=== PATIENT | female | born 1965 | race Caucasian/White ===

== ENCOUNTER 2020-10-09 21:20 | Inpatient (IN) | payer MEDICARE ==
[~2020-10-09] VITALS: Ht 162.6 cm; Wt 83.0 kg
[2020-10-09] MEDS ORDERED: CEFEPIME 1 GM in SODIUM CHLORIDE 0.9% 50ML 50 ML IV ONE (21:45)
[2020-10-09] MEDS ORDERED: VANCOMYCIN 1GM/NS 250 ML 250 ML IV ONE (21:45)
[2020-10-09 22:00] LABS: BASOPHILS # (AUTO) 0.1 (0.0-0.1); BASOPHILS % 0.6 % (0.0-1.0); EOSINOPHILS # (AUTO) 0.2 (0.0-0.4); HEMATOCRIT 35.7 % (34.2-44.1); HEMOGLOBIN 11.7 g/dL (12.0-16.0); LYMPHOCYTES % 22.7 % (18.0-39.1); MEAN CORPUSCULAR HGB CONC 32.8 g/dL (31-35); MEAN CORPUSCULAR VOLUME 94.7 fL (81-99); MONOCYTES # (AUTO) 0.7 (0.2-0.8); MONOCYTES % 7.6 % (4.4-11.3); NEUTROPHILS # (AUTO) 5.9 (2.1-6.9); NEUTROPHILS % 66.3 % (38.7-80.0); PLATELET COUNT 405 x10e3/uL (140-360); RED BLOOD COUNT 3.77 x10e6/uL (3.6-5.1)
[2020-10-09 22:17] LABS: ALBUMIN/GLOBULIN RATIO 0.8 (0.8-2.0); ANION GAP 13.2 mmol/L (8-16); CALCIUM 9.5 mg/dL (8.4-10.2); CREATININE, SERUM 0.8 mg/dL (0.57-1.11); POTASSIUM 4.2 mmol/L (3.5-5.1)
[2020-10-09] MEDS ORDERED: Vancomycin IV 1 GM VIAL ONE (22:42)
[2020-10-09] MEDS ORDERED: SODIUM CHLORIDE 0.9% 250ML 250 ML ONE (22:42)
[2020-10-09] MEDS ORDERED: SODIUM CHLORIDE 0.9% 50ML 50 ML ONE (22:43)
[2020-10-09] MEDS ORDERED: CEFEPIME HCL 1 GM VIAL ONE (22:43)
[2020-10-09] MEDS: MORPHINE SULFATE INJ 4 MG/ML INJ 1ML IV PRN (23:48)
[2020-10-09] MEDS: ONDANSETRON HCL INJ 2MG/ML 2ML 2 MG/ML VIAL IV PRN (23:48)
[2020-10-10] VITALS (9 sets, daily range): BP systolic 112–136; BP diastolic 51–75
[2020-10-10] MEDS: SODIUM CHLORIDE 0.9% 1000ML 1,000 ML IV SCH ×3 (03:14→14:45)
[2020-10-10] MEDS ORDERED: ULTRAM50 MG PO (03:51)
[2020-10-10] MEDS ORDERED: IBUPROFEN200 MG PO (03:51)
[2020-10-10] MEDS ORDERED: LEVOCETIRIZINE D5 MG (03:51)
[2020-10-10] MEDS ORDERED: FLONASE ALLERG9.9 ML INH (03:51)
[2020-10-10] MEDS ORDERED: VENLAFAXINE H37.5 M2 PO (03:51)
[2020-10-10] MEDS ORDERED: DOXYCYCLINE MO100 M1 (03:51)
[2020-10-10] MEDS ORDERED: MONTELUKAST SOD10 MG PO (03:51)
[2020-10-10] MEDS: CEFEPIME 1 GM in SODIUM CHLORIDE 0.9% 50ML 50 ML IV SCH ×2 (05:28→14:33)
[2020-10-10] MEDS: ONDANSETRON HCL INJ 2MG/ML 2ML 2 MG/ML VIAL IV PRN (06:02)
[2020-10-10] MEDS: MORPHINE SULFATE INJ 4 MG/ML INJ 1ML IV PRN ×4 (06:02→23:01)
[2020-10-10 07:30] LABS: BASOPHILS # (AUTO) 0.1 (0.0-0.1); BASOPHILS % 0.6 % (0.0-1.0); EOSINOPHILS # (AUTO) 0.2 (0.0-0.4); EOSINOPHILS % 2.6 % (0.0-6.0); HEMATOCRIT 31.9 % (34.2-44.1); HEMOGLOBIN 10.3 g/dL (12.0-16.0); MEAN CORPUSCULAR HEMOGLOBIN 31.1 pg (28-32); MEAN CORPUSCULAR HGB CONC 32.3 g/dL (31-35); MEAN CORPUSCULAR VOLUME 96.4 fL (81-99); MONOCYTES # (AUTO) 0.7 (0.2-0.8); MONOCYTES % 8.8 % (4.4-11.3); NEUTROPHILS # (AUTO) 5.2 (2.1-6.9); NEUTROPHILS % 63.3 % (38.7-80.0); PLATELET COUNT 333 x10e3/uL (140-360); RED BLOOD COUNT 3.31 x10e6/uL (3.6-5.1); RED CELL DISTRIBUTION WIDTH 12.1 % (11.7-14.4)
[2020-10-10 08:04] LABS: ALBUMIN 2.6 g/dL (3.5-5.0); ALBUMIN/GLOBULIN RATIO 0.9 (0.8-2.0); ANION GAP 14.6 mmol/L (8-16); CREATININE, SERUM 0.69 mg/dL (0.57-1.11); POTASSIUM 4.6 mmol/L (3.5-5.1)
[2020-10-10] MEDS: ACETAMINOPHEN 325 MG TAB PO PRN (22:19)
[2020-10-10] MEDS: Vancomycin IV 1 GM in SODIUM CHLORIDE 0.9% 250ML 250 ML IV SCH (23:00)
[2020-10-11] VITALS (8 sets, daily range): BP systolic 12–142; BP diastolic 62–76
[2020-10-11] MEDS: Vancomycin IV 1 GM in SODIUM CHLORIDE 0.9% 250ML 250 ML IV SCH (00:35)
[2020-10-11] MEDS ORDERED: CEFEPIME 1 GM in SODIUM CHLORIDE 0.9% 50ML 50 ML IV SCH (02:00)
[2020-10-11] MEDS: SODIUM CHLORIDE 0.9% 1000ML 1,000 ML IV SCH ×3 (02:03→19:20)
[2020-10-11] MEDS: ACETAMINOPHEN 325 MG TAB PO PRN (04:33)
[2020-10-11 05:06] LABS: BASOPHILS # (AUTO) 0.1 (0.0-0.1); BASOPHILS % 0.7 % (0.0-1.0); EOSINOPHILS # (AUTO) 0.3 (0.0-0.4); EOSINOPHILS % 3.6 % (0.0-6.0); HEMATOCRIT 34.3 % (34.2-44.1); HEMOGLOBIN 11.1 g/dL (12.0-16.0); LYMPHOCYTES # (AUTO) 1.8 (1.0-3.2); LYMPHOCYTES % 23.5 % (18.0-39.1); MEAN CORPUSCULAR HEMOGLOBIN 30.9 pg (28-32); MEAN CORPUSCULAR HGB CONC 32.4 g/dL (31-35); MEAN CORPUSCULAR VOLUME 95.5 fL (81-99); MONOCYTES # (AUTO) 0.7 (0.2-0.8); MONOCYTES % 9.2 % (4.4-11.3); NEUTROPHILS # (AUTO) 4.7 (2.1-6.9); NEUTROPHILS % 62.6 % (38.7-80.0); PLATELET COUNT 327 x10e3/uL (140-360); RED BLOOD COUNT 3.59 x10e6/uL (3.6-5.1)
[2020-10-11 05:43] LABS: ANION GAP 12.1 mmol/L (8-16); CALCIUM 8.6 mg/dL (8.4-10.2); CREATININE, SERUM 0.68 mg/dL (0.57-1.11); POTASSIUM 4.1 mmol/L (3.5-5.1)
[2020-10-11] MEDS: MORPHINE SULFATE INJ 4 MG/ML INJ 1ML IM PRN ×3 (07:41→17:07)
[2020-10-11] MEDS: VENLAFAXINE HCL 37.5MG XR CAP PO SCH (09:00)
[2020-10-11] MEDS ORDERED: VENLAFAXINE HCL 37.5 MG PO SCH (09:00)
[2020-10-11 16:24] LABS: INR 0.97; PROTHROMBIN TIME 13.5 seconds (11.9-14.5)
[2020-10-11 16:25] LABS: PARTIAL THROMBOPLASTIN TIME 31.2 seconds (23.8-35.5)
[2020-10-11] MEDS: DOXYCYCLINE HYCLATE TABLET 100 MG TAB PO SCH (17:00)
[2020-10-11] MEDS ORDERED: ENOXAPARIN SOD INJ 40 MG/0.4 ML SYR SC SCH (17:00)
[2020-10-12] VITALS: BP 144/66
[2020-10-12 04:00] VITALS: BP 133/59
[2020-10-12 06:05] LABS: BASOPHILS # (AUTO) 0.1 (0.0-0.1); BASOPHILS % 0.6 % (0.0-1.0); EOSINOPHILS # (AUTO) 0.2 (0.0-0.4); EOSINOPHILS % 2.2 % (0.0-6.0); HEMATOCRIT 34.4 % (34.2-44.1); LYMPHOCYTES # (AUTO) 1.9 (1.0-3.2); LYMPHOCYTES % 24.2 % (18.0-39.1); MEAN CORPUSCULAR HEMOGLOBIN 30.7 pg (28-32); MEAN CORPUSCULAR VOLUME 96.1 fL (81-99); MONOCYTES # (AUTO) 0.6 (0.2-0.8); MONOCYTES % 7.4 % (4.4-11.3); NEUTROPHILS # (AUTO) 5.1 (2.1-6.9); PLATELET COUNT 318 x10e3/uL (140-360); RED BLOOD COUNT 3.58 x10e6/uL (3.6-5.1); RED CELL DISTRIBUTION WIDTH 11.9 % (11.7-14.4)
[2020-10-12 06:26] LABS: ANION GAP 15.2 mmol/L (8-16); CALCIUM 8.5 mg/dL (8.4-10.2); CREATININE, SERUM 0.63 mg/dL (0.57-1.11); POTASSIUM 4.2 mmol/L (3.5-5.1)
[2020-10-12] MEDS ORDERED: IBUPROFEN200 MG PO (06:31)
[2020-10-12] MEDS ORDERED: CIPRO500 MG PO (06:31)
[2020-10-12] MEDS ORDERED: VIBRAMYCIN100 MG PO (06:31)
[2020-10-12 08:41] VITALS: BP 133/70
[2020-10-12 09:01] VITALS: BP 133/70
[2020-10-12] MEDS: VENLAFAXINE HCL 37.5MG XR CAP PO SCH (09:32)
[2020-10-12] MEDS: DOXYCYCLINE HYCLATE TABLET 100 MG TAB PO SCH (09:32)
== END 2020-10-12 10:42 | disposition home or self-care (01) | DRG 300 ==
LOC: ER 21:30 → ERHOLD 22:50 → MED/SURG3 10-10 02:01
PROVIDERS: ADMIT Internal Medicine; ATTEND Internal Medicine
DX: I80.8 Phlebitis and thrombophlebitis of other sites (principal); L03.114 Cellulitis of left upper limb; L03.113 Cellulitis of right upper limb; F32.9 Major depressive disorder, single episode, unspecified; E66.8 Other obesity; Z68.31 Body mass index [BMI] 31.0-31.9, adult; Z20.822 Contact with and (suspected) exposure to COVID-19
CPT/HCPCS: 36415; 80048; 80053; 83605; 85025; 85610; 85730; 87040; 93970; 99251; 99284; J0692; J1650; J2270; J2405; J3370; J7030; J7050; U0002

== ENCOUNTER 2021-10-26 19:31 | Observation (INO) | payer MEDICARE ==
[~2021-10-26] VITALS: Ht 162.6 cm; Wt 83.0 kg
[~2021-10-26 19:31] MED LIST: CIPRO500 MG PO; DEXAMETHASONE SOD PHOS INJ 4 MG/ML SDV ONE; DOXYCYCLINE MO100 M1; FLONASE ALLERG9.9 ML INH; GLYCOPYRROLATE INJ 0.2 MG/ML VIAL ONE; IBUPROFEN200 MG PO; KETOROLAC TROMETHAMINE 30 MG/ML VIAL ONE; LEVOCETIRIZINE D5 MG; MONTELUKAST SOD10 MG PO; ONDANSETRON HCL INJ 2MG/ML 2ML 2 MG/ML VIAL ONE; POVIDONE IODINE 0.05% 0.05 % ML PO ONE; PROPOFOL IV EMULSION 10 MG/ML 20 ML VIAL ONE; SEVOFLURANE INHAL SOLN 250 ML PEN BTL ONE; ULTRAM50 MG PO; VENLAFAXINE H37.5 M2 PO; VIBRAMYCIN100 MG PO
[2021-10-26] MEDS ORDERED: ONDANSETRON HCL INJ 2MG/ML 2ML 2 MG/ML VIAL IV STA (19:51)
[2021-10-26] MEDS ORDERED: KETOROLAC TROMETHAMINE 30 MG/ML VIAL IV STA (19:51)
[2021-10-26] MEDS ORDERED: DICYCLOMINE HCL 20 MG/2 ML VIAL IM ONE (20:00)
[2021-10-26 20:13] LABS: BASOPHILS # (AUTO) 0.1 (0.0-0.1); BASOPHILS % 0.8 % (0.0-1.0); EOSINOPHILS # (AUTO) 0.2 (0.0-0.4); HEMATOCRIT 41.7 % (34.2-44.1); HEMOGLOBIN 14.4 g/dL (12.0-16.0); LYMPHOCYTES # (AUTO) 2.2 (1.0-3.2); LYMPHOCYTES % 26.2 % (18.0-39.1); MEAN CORPUSCULAR HEMOGLOBIN 33.3 pg (28-32); MEAN CORPUSCULAR HGB CONC 34.5 g/dL (31-35); MEAN CORPUSCULAR VOLUME 96.5 fL (81-99); MONOCYTES # (AUTO) 0.6 (0.2-0.8); MONOCYTES % 7.3 % (4.4-11.3); NEUTROPHILS # (AUTO) 5.3 (2.1-6.9); NEUTROPHILS % 63.2 % (38.7-80.0); PLATELET COUNT 256 x10e3/uL (140-360); RED BLOOD COUNT 4.32 x10e6/uL (3.6-5.1); RED CELL DISTRIBUTION WIDTH 12.4 % (11.7-14.4)
[2021-10-26 20:32] LABS: ALANINE AMINOTRANSFERASE 87 IU/L (0-55); ALBUMIN 3.7 g/dL (3.5-5.0); ALBUMIN/GLOBULIN RATIO 0.9 (0.8-2.0); ALKALINE PHOSPHATASE 76 IU/L (40-150); ANION GAP 15.9 mmol/L (8-16); BLOOD UREA NITROGEN 18 mg/dL (7-26); BUN/CREATININE RATIO 20 (6-25); CALCIUM 9.3 mg/dL (8.4-10.2); CARBON DIOXIDE 24 mmol/L (22-29); CHLORIDE 107 mmol/L (98-107); CREATINE KINASE 91 IU/L (29-168); CREATININE, SERUM 0.88 mg/dL (0.57-1.11); GLUCOSE 105 mg/dL (74-118); POTASSIUM 4.9 mmol/L (3.5-5.1); SODIUM 142 mmol/L (136-145)
[2021-10-26] MEDS ORDERED: ONDANSETRON HCL 4 MG ORAL DISINTEGRATING TAB PO ONE (21:00)
[2021-10-26] MEDS ORDERED: KETOROLAC TROMETHAMINE 60 MG/2 ML VIAL IM ONE (21:00)
[2021-10-26] MEDS ORDERED: KETOROLAC TROMETHAMINE 60 MG/2 ML VIAL ONE (21:06)
[2021-10-27] VITALS (9 sets, daily range): BP systolic 123–158; BP diastolic 56–92
[2021-10-27] MEDS ORDERED: OCEAN104 ML IH (01:58)
[2021-10-27] MEDS ORDERED: LEVOCETIRIZINE D5 MG PO (01:58)
[2021-10-27] MEDS ORDERED: OLOPATADINE HC2.5 ML OU (01:58)
[2021-10-27] MEDS: SODIUM CHLORIDE 0.9% 1000ML 1,000 ML IV SCH ×4 (06:16→22:45)
[2021-10-27] MEDS: Morphine 4mg INJECTION 4 MG/ML INJ IV PRN ×5 (06:17→22:38)
[2021-10-27 07:00] LABS: BASOPHILS % 0.6 % (0.0-1.0); EOSINOPHILS # (AUTO) 0.2 (0.0-0.4); EOSINOPHILS % 3.5 % (0.0-6.0); HEMOGLOBIN 12.7 g/dL (12.0-16.0); LYMPHOCYTES # (AUTO) 2.1 (1.0-3.2); LYMPHOCYTES % 31.7 % (18.0-39.1); MEAN CORPUSCULAR HEMOGLOBIN 32.8 pg (28-32); MEAN CORPUSCULAR HGB CONC 33.4 g/dL (31-35); MEAN CORPUSCULAR VOLUME 98.2 fL (81-99); MONOCYTES # (AUTO) 0.6 (0.2-0.8); MONOCYTES % 9.8 % (4.4-11.3); NEUTROPHILS # (AUTO) 3.5 (2.1-6.9); NEUTROPHILS % 54.1 % (38.7-80.0); PLATELET COUNT 178 x10e3/uL (140-360); RED BLOOD COUNT 3.87 x10e6/uL (3.6-5.1); RED CELL DISTRIBUTION WIDTH 12.5 % (11.7-14.4)
[2021-10-27 07:29] LABS: ALBUMIN 3.1 g/dL (3.5-5.0); CALCIUM 7.8 mg/dL (8.4-10.2); CREATININE, SERUM 0.83 mg/dL (0.57-1.11)
[2021-10-27] MEDS ORDERED: BUPIVACAINE 0.25% 30ML SDV ONE (12:35)
[2021-10-27] MEDS ORDERED: MIDAZOLAM HCL 2 MG/2 ML VIAL ONE (12:55)
[2021-10-27] MEDS ORDERED: FENTANYL CITRATE/PF 100MCG/2 ML INJ ONE (12:55)
[2021-10-27] MEDS: FLUTICASONE PROPIONATE NASAL SPRAY NS SCH (17:26)
[2021-10-27] MEDS: ONDANSETRON HCL INJ 2MG/ML 2ML 2 MG/ML VIAL IV PRN (22:38)
[2021-10-28 00:38] VITALS: BP 150/77
[2021-10-28] MEDS: Morphine 4mg INJECTION 4 MG/ML INJ IV PRN ×2 (03:26→09:19)
[2021-10-28] MEDS: ONDANSETRON HCL INJ 2MG/ML 2ML 2 MG/ML VIAL IV PRN (03:26)
[2021-10-28 04:00] VITALS: BP 129/70
[2021-10-28] MEDS: METOCLOPRAMIDE HCL 10 MG/2ML VIAL IV SCH ×2 (06:00→12:00)
[2021-10-28] MEDS: SODIUM CHLORIDE 0.9% 1000ML 1,000 ML IV SCH (06:01)
[2021-10-28 08:08] VITALS: BP 96/68
[2021-10-28 08:19] VITALS: BP 96/68
[2021-10-28] MEDS ORDERED: LORATADINE 10 MG TAB PO SCH (09:00)
[2021-10-28] MEDS ORDERED: OLOPATADINE (OPTH) 5 ML BTL OP SCH (09:00)
[2021-10-28] MEDS: FLUTICASONE PROPIONATE NASAL SPRAY NS SCH (09:12)
[2021-10-28 12:04] VITALS: BP 111/61
== END 2021-10-28 13:02 | disposition home or self-care (01) ==
LOC: ER 19:52 → INTOOBSV 22:23 → ERHOLD 22:23 → MED/SURG3 10-27 03:19
PROVIDERS: ADMIT Family Medicine; ATTEND Family Medicine
DX: K80.00 Calculus of gallbladder with acute cholecystitis without obstruction (principal); R16.0 Hepatomegaly, not elsewhere classified; K76.0 Fatty (change of) liver, not elsewhere classified; H91.90 Unspecified hearing loss, unspecified ear; F32.A Depression, unspecified; K82.8 Other specified diseases of gallbladder; F17.200 Nicotine dependence, unspecified, uncomplicated; Z20.822 Contact with and (suspected) exposure to COVID-19
CPT/HCPCS: 36415 ×2; 36569; 47562; 71045; 76705; 80053 ×2; 82550; 82553; 83690 ×2; 84484; 85025 ×2; 88304; 93041; 94799; 99284; C9113; G0378 ×3; J0500; J0692; J0694; J1100; J1885 ×2; J2250; J2270 ×2; J2405 ×3; J2704; J2765; J3010; J7030 ×2; Q0162; U0002

== ENCOUNTER 2021-11-06 15:34 | Inpatient (IN) | payer MEDICARE ==
[~2021-11-06] VITALS: Ht 162.6 cm; Wt 83.0 kg
[~2021-11-06 15:34] MED LIST changes: -DEXAMETHASONE SOD PHOS INJ 4 MG/ML SDV ONE; -GLYCOPYRROLATE INJ 0.2 MG/ML VIAL ONE; -KETOROLAC TROMETHAMINE 30 MG/ML VIAL ONE; +LEVOCETIRIZINE D5 MG PO; +OCEAN104 ML IH; +OLOPATADINE HC2.5 ML OU; -ONDANSETRON HCL INJ 2MG/ML 2ML 2 MG/ML VIAL ONE; -POVIDONE IODINE 0.05% 0.05 % ML PO ONE; -PROPOFOL IV EMULSION 10 MG/ML 20 ML VIAL ONE; -SEVOFLURANE INHAL SOLN 250 ML PEN BTL ONE
[2021-11-06] MEDS ORDERED: HYDROCODONE/APAP 5MG-325MG TAB PO ONE (16:30)
[2021-11-06] MEDS ORDERED: SODIUM CHLORIDE 0.9% 1000ML 1,000 ML IV ONE (16:45)
[2021-11-06] MEDS: Vancomycin IV 1 GM in SODIUM CHLORIDE 0.9% 250ML 250 ML IV SCH (17:35)
[2021-11-06 17:37] LABS: BASOPHILS # (AUTO) 0.1 (0.0-0.1); BASOPHILS % 0.3 % (0.0-1.0); EOSINOPHILS # (AUTO) 0.1 (0.0-0.4); EOSINOPHILS % 0.5 % (0.0-6.0); HEMOGLOBIN 12.9 g/dL (12.0-16.0); LYMPHOCYTES # (AUTO) 1.5 (1.0-3.2); LYMPHOCYTES % 10.1 % (18.0-39.1); MEAN CORPUSCULAR HEMOGLOBIN 32.7 pg (28-32); MEAN CORPUSCULAR HGB CONC 33.9 g/dL (31-35); MEAN CORPUSCULAR VOLUME 96.4 fL (81-99); MONOCYTES # (AUTO) 0.9 (0.2-0.8); MONOCYTES % 6.1 % (4.4-11.3); NEUTROPHILS # (AUTO) 12.4 (2.1-6.9); NEUTROPHILS % 82.4 % (38.7-80.0); PLATELET COUNT 278 x10e3/uL (140-360); RED BLOOD COUNT 3.94 x10e6/uL (3.6-5.1); RED CELL DISTRIBUTION WIDTH 12.1 % (11.7-14.4)
[2021-11-06 17:54] LABS: ALBUMIN/GLOBULIN RATIO 0.7 (0.8-2.0); ANION GAP 15.7 mmol/L (8-16); CALCIUM 9.3 mg/dL (8.4-10.2); CREATININE, SERUM 0.75 mg/dL (0.57-1.11); POTASSIUM 4.7 mmol/L (3.5-5.1)
[2021-11-06] MEDS ORDERED: SODIUM CHLORIDE FLUSH 10 ML SYR INJ PRN (18:15)
[2021-11-06] MEDS ORDERED: Morphine 4mg INJECTION 4 MG/ML INJ IV PRN (18:15)
[2021-11-06] MEDS: ENOXAPARIN INJ 80 MG/0.8 ML SYR SC SCH (18:43)
[2021-11-06] MEDS ORDERED: BACITRACIN ZINC 0.9GM TP ONE (18:47)
[2021-11-06] MEDS ORDERED: ONDANSETRON ODT4 MG PO (20:16)
[2021-11-06 20:30] VITALS: BP 151/62
[2021-11-06 21:29] VITALS: BP 151/62
[2021-11-06] MEDS ORDERED: ACETAMINOPHEN 325 MG TAB PO PRN (21:30)
[2021-11-06] MEDS ORDERED: SODIUM CHLORIDE 0.9% 250ML 250 ML ONE (22:15)
[2021-11-06] MEDS: LEVOFLOXACIN 750MG/D5W 150ML 150 ML IV SCH (22:16)
[2021-11-06 22:27] VITALS: BP 151/62
[2021-11-07] VITALS (8 sets, daily range): BP systolic 109–149; BP diastolic 64–77
[2021-11-07] MEDS ORDERED: HYDRALAZINE HCL 20 MG/ML VIAL IV PRN
[2021-11-07] MEDS: Vancomycin IV 1 GM in SODIUM CHLORIDE 0.9% 250ML 250 ML IV SCH ×2 (05:42→16:11)
[2021-11-07] MEDS: ENOXAPARIN INJ 80 MG/0.8 ML SYR SC SCH (05:42)
[2021-11-07 05:48] LABS: BASOPHILS # (AUTO) 0.1 (0.0-0.1); BASOPHILS % 0.6 % (0.0-1.0); EOSINOPHILS # (AUTO) 0.3 (0.0-0.4); EOSINOPHILS % 2.4 % (0.0-6.0); HEMATOCRIT 34.3 % (34.2-44.1); HEMOGLOBIN 11.5 g/dL (12.0-16.0); LYMPHOCYTES # (AUTO) 1.9 (1.0-3.2); LYMPHOCYTES % 17.2 % (18.0-39.1); MEAN CORPUSCULAR HGB CONC 33.5 g/dL (31-35); MEAN CORPUSCULAR VOLUME 98.6 fL (81-99); MONOCYTES # (AUTO) 0.8 (0.2-0.8); MONOCYTES % 7.3 % (4.4-11.3); NEUTROPHILS # (AUTO) 7.8 (2.1-6.9); NEUTROPHILS % 71.8 % (38.7-80.0); PLATELET COUNT 264 x10e3/uL (140-360); RED BLOOD COUNT 3.48 x10e6/uL (3.6-5.1); RED CELL DISTRIBUTION WIDTH 12.3 % (11.7-14.4)
[2021-11-07] MEDS: HYDROCODONE/APAP 5MG-325MG TAB PO PRN ×2 (05:50→06:15)
[2021-11-07 06:15] LABS: INR 1.09; PROTHROMBIN TIME 15.1 seconds (11.9-14.5)
[2021-11-07 06:16] LABS: PARTIAL THROMBOPLASTIN TIME 34.6 seconds (23.8-35.5)
[2021-11-07 06:19] LABS: ANION GAP 11.9 mmol/L (8-16); CALCIUM 8.2 mg/dL (8.4-10.2); CREATININE, SERUM 0.67 mg/dL (0.57-1.11); POTASSIUM 3.9 mmol/L (3.5-5.1)
[2021-11-07] MEDS: DOCUSATE SODIUM 100 MG CAP PO SCH (09:21)
[2021-11-07] MEDS: SENNOSIDES 8.6 MG TAB PO SCH (09:21)
[2021-11-07] MEDS: HYDROMORPHONE 1MG/1ML INJ IV PRN ×3 (09:57→19:49)
[2021-11-07] MEDS: APIXABAN 5 MG TABLET PO SCH (16:10)
[2021-11-07 17:36] LABS: FERRITIN 676.68 ng/mL (4.63-204.00)
[2021-11-07] MEDS: LEVOFLOXACIN 750MG/D5W 150ML 150 ML IV SCH (20:30)
[2021-11-08] VITALS (7 sets, daily range): BP systolic 131–151; BP diastolic 50–81
[2021-11-08] MEDS: HYDROCODONE/APAP 5MG-325MG TAB PO PRN ×3 (00:07→19:30)
[2021-11-08] MEDS: HYDROMORPHONE 1MG/1ML INJ IV PRN ×2 (06:01→11:40)
[2021-11-08 07:03] LABS: BASOPHILS # (AUTO) 0.1 (0.0-0.1); BASOPHILS % 0.6 % (0.0-1.0); EOSINOPHILS # (AUTO) 0.3 (0.0-0.4); EOSINOPHILS % 2.6 % (0.0-6.0); HEMATOCRIT 35.5 % (34.2-44.1); HEMOGLOBIN 11.9 g/dL (12.0-16.0); LYMPHOCYTES # (AUTO) 1.8 (1.0-3.2); LYMPHOCYTES % 16.8 % (18.0-39.1); MEAN CORPUSCULAR HEMOGLOBIN 32.3 pg (28-32); MEAN CORPUSCULAR HGB CONC 33.5 g/dL (31-35); MEAN CORPUSCULAR VOLUME 96.5 fL (81-99); MONOCYTES # (AUTO) 0.9 (0.2-0.8); MONOCYTES % 8.3 % (4.4-11.3); NEUTROPHILS # (AUTO) 7.4 (2.1-6.9); NEUTROPHILS % 70.6 % (38.7-80.0); PLATELET COUNT 256 x10e3/uL (140-360); RED BLOOD COUNT 3.68 x10e6/uL (3.6-5.1); RED CELL DISTRIBUTION WIDTH 12.3 % (11.7-14.4)
[2021-11-08 07:09] LABS: CALCIUM 8.5 mg/dL (8.4-10.2); CREATININE, SERUM 0.68 mg/dL (0.57-1.11)
[2021-11-08] MEDS: Vancomycin IV 1 GM in SODIUM CHLORIDE 0.9% 250ML 250 ML IV SCH (07:09)
[2021-11-08] MEDS: DOCUSATE SODIUM 100 MG CAP PO SCH (08:47)
[2021-11-08] MEDS: SENNOSIDES 8.6 MG TAB PO SCH (08:47)
[2021-11-08] MEDS: APIXABAN 5 MG TABLET PO SCH ×2 (08:47→16:24)
[2021-11-08] MEDS ORDERED: BISACODYL 10 MG SUPP PR ONE (10:30)
[2021-11-08] MEDS ORDERED: IOPAMIDOL 370 MG/ML 100 ML INFUS..BTL INJ ONE (10:32)
[2021-11-08] MEDS: ONDANSETRON HCL INJ 2MG/ML 2ML 2 MG/ML VIAL IV PRN ×2 (11:40→19:32)
[2021-11-08] MEDS: POLYETHYLENE GLYCOL 3350 17 GM PACK PO SCH (16:24)
[2021-11-08] MEDS ORDERED: LEVOFLOXACIN 750MG/D5W 150ML 150 ML IV SCH (18:30)
[2021-11-09] VITALS: BP 134/66
[2021-11-09] MEDS ORDERED: DIPHENHYDRAMINE HCL INJ 50 MG/ML VIAL IV ONE ×2 (01:15→02:30)
[2021-11-09] MEDS: HYDROMORPHONE 1MG/1ML INJ IV PRN ×2 (02:21→21:30)
[2021-11-09] MEDS ORDERED: DEXAMETHASONE SOD PHOS 10 MG/1 ML VIAL IV ONE (03:15)
[2021-11-09 05:27] LABS: BASOPHILS # (AUTO) 0.1 (0.0-0.1); BASOPHILS % 0.5 % (0.0-1.0); EOSINOPHILS # (AUTO) 0.2 (0.0-0.4); EOSINOPHILS % 1.6 % (0.0-6.0); HEMATOCRIT 34.4 % (34.2-44.1); HEMOGLOBIN 11.8 g/dL (12.0-16.0); LYMPHOCYTES # (AUTO) 1.1 (1.0-3.2); LYMPHOCYTES % 7.4 % (18.0-39.1); MEAN CORPUSCULAR HEMOGLOBIN 32.9 pg (28-32); MEAN CORPUSCULAR HGB CONC 34.3 g/dL (31-35); MEAN CORPUSCULAR VOLUME 95.8 fL (81-99); MONOCYTES # (AUTO) 0.5 (0.2-0.8); MONOCYTES % 3.7 % (4.4-11.3); NEUTROPHILS # (AUTO) 12.7 (2.1-6.9); NEUTROPHILS % 85.4 % (38.7-80.0); PLATELET COUNT 312 x10e3/uL (140-360); RED BLOOD COUNT 3.59 x10e6/uL (3.6-5.1); RED CELL DISTRIBUTION WIDTH 12.3 % (11.7-14.4)
[2021-11-09 05:49] LABS: ALBUMIN 2.6 g/dL (3.5-5.0); CALCIUM 8.5 mg/dL (8.4-10.2); CREATININE, SERUM 0.71 mg/dL (0.57-1.11); MAGNESIUM 1.9 MG/DL (1.3-2.1)
[2021-11-09 05:50] LABS: ALBUMIN/GLOBULIN RATIO 0.7 (0.8-2.0)
[2021-11-09 08:27] VITALS: BP 139/71
[2021-11-09 09:00] VITALS: BP 139/71
[2021-11-09] MEDS: IRON SUCROSE 100 MG in SODIUM CHLORIDE 0.9% 100 ML IV SCH (09:30)
[2021-11-09] MEDS: POLYETHYLENE GLYCOL 3350 17 GM PACK PO SCH ×2 (09:45→17:45)
[2021-11-09] MEDS: DOCUSATE SODIUM 100 MG CAP PO SCH (09:45)
[2021-11-09] MEDS: SENNOSIDES 8.6 MG TAB PO SCH (09:45)
[2021-11-09] MEDS ORDERED: CITRATE OF MAGNESIA 300ML BOTTLE PO ONE (10:30)
[2021-11-09] MEDS ORDERED: BISACODYL 10 MG SUPP PR ONE (10:30)
[2021-11-09 12:30] VITALS: BP 129/64
[2021-11-09] MEDS ORDERED: GADOBENATE DIMEGLUMINE 1 ML IV ONE (12:52)
[2021-11-09 16:26] VITALS: BP 133/77
[2021-11-09] MEDS: RIVAROXABAN 15 MG TABLET PO SCH (17:45)
[2021-11-09] MEDS ORDERED: LEVOFLOXACIN 250 MG TAB PO SCH (18:30)
[2021-11-09 20:00] VITALS: BP 150/89
[2021-11-10] VITALS: BP 139/79
[2021-11-10] MEDS ORDERED: DIPHENOXYLATE/ATROPINE TAB PO ONE ×2 (00:30→06:30)
[2021-11-10] MEDS: HYDROCODONE/APAP 5MG-325MG TAB PO PRN (02:55)
[2021-11-10 04:00] VITALS: BP 150/71
[2021-11-10] MEDS ORDERED: SUCRALFATE 1 GM TAB PO SCH ×2 (07:30→21:00)
[2021-11-10 08:52] VITALS: BP 125/90
[2021-11-10] MEDS: RIVAROXABAN 15 MG TABLET PO SCH (09:36)
[2021-11-10] MEDS: IRON SUCROSE 100 MG in SODIUM CHLORIDE 0.9% 100 ML IV SCH (09:36)
[2021-11-10] MEDS: HYDROMORPHONE 1MG/1ML INJ IV PRN (09:37)
[2021-11-10 09:46] VITALS: BP 125/90
[2021-11-10] MEDS ORDERED: FEROSUL325 MG PO (11:08)
[2021-11-10] MEDS ORDERED: HYDROCODON-ACE1 EA11 PO (11:08)
[2021-11-10] MEDS ORDERED: CARAFATE1 GM PO (11:08)
[2021-11-10] MEDS ORDERED: XARELTO15 MG PO (11:08)
[2021-11-10] MEDS ORDERED: LEVOFLOXACIN250 MG PO (11:08)
[2021-11-10] MEDS ORDERED: Morphine 4mg INJECTION 4 MG/ML INJ IM ONE (13:00)
[2021-11-14] MEDS ORDERED: APIXABAN 5 MG TABLET PO SCH (17:00)
== END 2021-11-10 12:00 | disposition home or self-care (01) | DRG 872 ==
LOC: ER 15:48 → MED/SURG3 18:15
PROVIDERS: ADMIT Internal Medicine; ATTEND Internal Medicine
DX: A41.9 Sepsis, unspecified organism (principal); I82.621 Acute embolism and thrombosis of deep veins of right upper extremity; K91.872 Postprocedural seroma of a digestive system organ or structure following a digestive system procedure; I82.A11 Acute embolism and thrombosis of right axillary vein; L03.113 Cellulitis of right upper limb; Y83.8 Other surgical procedures as the cause of abnormal reaction of the patient, or of later complication, without mention of misadventure at the time of the procedure; R16.0 Hepatomegaly, not elsewhere classified; D50.9 Iron deficiency anemia, unspecified; R12 Heartburn; D63.8 Anemia in other chronic diseases classified elsewhere; E66.09 Other obesity due to excess calories; Z68.31 Body mass index [BMI] 31.0-31.9, adult; F41.9 Anxiety disorder, unspecified; Z88.0 Allergy status to penicillin; Z91.010 Allergy to peanuts
CPT/HCPCS: 0223U; 36415; 74176; 74183; 76705; 80048; 80053; 80202; 81241; 82105; 82607; 82728; 82746; 83090; 83540; 83605; 83735; 84466; 85025; 85045; 85300; 85303; 85306; 85379; 85597; 85598; 85610; 85613; 85730; 85732; 86039; 86146; 86147; 86148; 86704; 86849; 87040; 87081; 93005; 93971; 96361; 99284; J1100; J1170; J1200; J1650; J1756; J2270; J2405; J3370; J7030; J7050; Q9967